=== PATIENT | male | born 1960 | race Caucasian/White ===

== ENCOUNTER 2016-05-24 12:51 | Outpatient (CLI) | payer BC | END 2016-05-24 12:52 | LOC: NAVSJIPCSP 12:51 | PROVIDERS: ATTEND Internal Medicine | DX: E78.5 Hyperlipidemia, unspecified (principal) | CPT/HCPCS: 36415; 80061 ==

== ENCOUNTER 2016-07-05 11:07 | Outpatient (CLI) | payer BC ==
[2016-07-05 13:22] LABS: Bilirubin Negative (Negative); Blood, Urine Negative (Negative); Glucose, Urine (Dipstick) Negative (Negative); Ketone, Urine Negative (Negative); Nitrite Negative (Negative); Protein, Urine (Dipstick) Negative (Neg-Trace); Urobilinogen 0.2 mg/dL (0.2-1.0)
== END 2016-07-05 11:08 | disposition home or self-care (01) ==
LOC: NAVSJIPCSP 11:07
PROVIDERS: ATTEND Internal Medicine
DX: R30.0 Dysuria (principal)
CPT/HCPCS: 81003; 87086

== ENCOUNTER 2016-09-28 09:49 | Outpatient (CLI) | payer BC ==
[2016-09-28 12:51] LABS: #Basophils 0.1 thou/uL (0.0-0.2); #Eosinphils 0.1 thou/uL (0.0-0.7); #Lymphocytes 1.9 thou/uL (1.20-3.40); #Monocytes 0.6 thou/uL (0.11-0.59); #Neutrophils 4.8 thou/uL (1.40-6.50); %Basophils 0.9 % (0.0-1.0); %Eosinophils 1.9 % (0.0-10.0); %Lymphocytes 25.5 % (21.0-51.0); %Monocytes 7.6 % (0.0-10.0); Mean Corpuscular HGB CONC 33.5 g/dL (32.0-36.0); Mean Corpuscular Hemoglobin 29.8 pg (27.0-31.0); Mean Corpuscular Volume 88.8 fl (80.0-94.0); Mean Platelet Volume 7.2 fL (7.4-10.4); Platelet Count 294 thou/uL (130-400); RBC Distribution Width 12.1 % (11.5-14.5); Red Blood Cell (RBC) Count 5.37 mill/uL (4.70-6.10); White Blood Cell (WBC) Count 7.4 thou/uL (4.8-10.8)
[2016-09-28 13:32] LABS: Anion Gap 18 mmol/L (10-20); BUN (Urea Nitrogen) 17 mg/dL (8.4-25.7); Calc. Creatinine Clearance 0 mL/min (70-130); Carbon Dioxide 21 mmol/L (22-29); Chloride 104 mmol/L (98-107); Estimated GFR-MDRD 88; Potassium 4.3 mmol/L (3.5-5.1); Sodium 139 mmol/L (136-145)
[2016-09-28 13:33] LABS: ALT (SGPT) 16 U/L (8-55); AST (SGOT) 16 U/L (5-34); Albumin 4.3 g/dL (3.5-5.0); Alkaline Phosphatase 68 U/L (40-150); Bilirubin, Total 0.7 mg/dL (0.2-1.2); Calcium 9.6 mg/dL (7.8-10.44); Cardiac Risk 4.2 (Less than 4.5); Cholesterol 161 mg/dl (< 200 Desired); Globulin 2.9 g/dL (2.4-3.5); Glucose 94 mg/dL (70-105); HDL Cholesterol 38 mg/dL (>60 Neg Risk); LDL Cholesterol, Calculated 107 mg/dL; Protein, Total 7.2 g/dL (6.0-8.3); Triglycerides 82 mg/dL (Less than 150)
[2016-09-28 13:57] LABS: Bilirubin Negative (Negative); Blood, Urine Trace (Negative); Clarity Clear (Clear); Glucose, Urine (Dipstick) Negative (Negative); Leukocyte Negative (Negative); Nitrite Negative (Negative); Protein, Urine (Dipstick) Negative (Neg-Trace); Specific Gravity, Urine 1.015 (1.005-1.030); Urobilinogen 0.2 mg/dL (0.2-1.0); pH, Urine 6.5 (5.0-9.0)
[2016-09-28 14:55] LABS: Bacteria/HPF None Seen HPF (None Seen); Crystals/HPF RARE SODIUM URATE HPF (Negative); RBC/HPF None Seen HPF (0-3); Squamous Epithelial 0-3 HPF (0-3); WBC/HPF 0-3 HPF (0-3)
== END 2016-09-28 09:50 | disposition home or self-care (01) ==
LOC: NAVSJIPCSP 09:49
PROVIDERS: ATTEND Internal Medicine
DX: Z12.5 Encounter for screening for malignant neoplasm of prostate (principal); E78.5 Hyperlipidemia, unspecified; I11.9 Hypertensive heart disease without heart failure; J30.9 Allergic rhinitis, unspecified
CPT/HCPCS: 36415; 80053; 80061; 81003; 81015; 85025; G0103

== ENCOUNTER 2017-01-05 10:46 | Outpatient (CLI) | payer BC ==
[2017-01-05 12:49] LABS: Cardiac Risk 4.5 (Less than 4.5)
== END 2017-01-05 10:47 | disposition home or self-care (01) ==
LOC: NAVSJIPCSP 10:46
PROVIDERS: ATTEND Internal Medicine
DX: E78.5 Hyperlipidemia, unspecified (principal); Z79.899 Other long term (current) drug therapy
CPT/HCPCS: 36415; 80061

== ENCOUNTER 2018-10-24 12:50 | Outpatient (CLI) | payer BC ==
--- NOTE | 2018-10-24 13:30 | CT ---
CT Abdomen Pelvis WO Con HISTORY: Gross hematuria. History of kidney stones. COMPARISON: None. FINDINGS: The lung bases are clear. The liver, spleen, pancreas and gallbladder regions are unremarkable given the limitations of a nonco ntrast exam. Right and left adrenal glands are normal. A punctate nonobstructing lower pole left renal calculus is noted with a second calculus also in this area measuring the 4-5 mm range. Very subtle hypodensities within the upper pole of the left kidney and mid to upper pole the right kidney are sta tistically most likely cysts. No ureteral calculi or signs of obstruction of either kidney. No significant periaortic or mesenteric adenopathy. CT of pelvis performed without contrast enhancement: Prostate calcifications are seen. The bladder is incompletely distended and shows no mass. No pelvic lymphadenopathy. IMPRESSION: 1. 4 to 5 mm nonobstructing lower pole left renal calculus. There is also a second smaller punctate c alcification seen in this area. 2. Subcentimeter hypodensities involving both kidneys statistically most likely cysts.
== END 2018-10-24 12:51 | disposition home or self-care (01) ==
LOC: NAV CT 12:50
PROVIDERS: ATTEND Internal Medicine
DX: R31.0 Gross hematuria (principal); N20.0 Calculus of kidney; R93.421 Abnormal radiologic findings on diagnostic imaging of right kidney; R93.422 Abnormal radiologic findings on diagnostic imaging of left kidney
CPT/HCPCS: 74176

== ENCOUNTER 2021-09-15 14:45 | Outpatient (CLI) | payer BC | END 2021-09-15 14:46 | disposition home or self-care (01) | LOC: NAV RAD 14:45 | PROVIDERS: ATTEND Nurse Practitioner Family | DX: M79.672 Pain in left foot (principal) ==